=== PATIENT | female | born 1960 | race Caucasian/White ===

== ENCOUNTER → 2017-07-12 | Outpatient (CLI) | payer BC ==
[~2017-07-12] MED LIST: CPR500 PO; LRT5 PO; PARO1TAB27 PO
--- NOTE | 2017-07-12 14:45 | MAMMOGRAPHY REPORT ---
BILATERAL DIGITAL SCREENING MAMMOGRAM TOMOSYNTHESIS WITH CAD: 07/12/2017 CLINICAL HISTORY: Routine screening. Patient has no complaints. TECHNIQUE: Breast tomosynthesis in addition to standard 2D mammography was performed. Current study was also evaluated with a Computer Aided Detection (CAD) system. COMPARISON: Comparison is made to exams dated: 07/08/2016 mammogram, 06/27/2015 mammogram, 06/25/2014 mammogram, 06/21/2013 mammogram, 06/20/2012 mammogram, and 06/17/2011 mammogram - [facility]. BREAST COMPOSITION: There are scattered areas of fibroglandular density in both breasts. FINDINGS: The parenchymal pattern is similar to prior exams. No suspicious mass, architectural distor tion or cluster of microcalcifications is seen. IMPRESSION: ACR BI-RADS CATEGORY 1: NEGATIVE There is no mammographic evidence of malignancy. A 1 year screening mammogram is recommended. The pa tient will receive written notification of the results. Approximately 10% of breast cancers are not detected with mammography. A negative mammographic report should not delay biopsy if a clinically suggestive mass is present. Marimar Plunkett M.D. ay/:07/12/2017 08:18:14 Pneumatic Tester: Moe Sherman, M, [facility] letter sent: Normal 1/2 BI-RADS Code: ACR BI-RADS Category 1: Negative
== END | disposition home or self-care (01) ==
LOC: C.MAMM 07:44
PROVIDERS: ATTEND Family Medicine
DX: Z12.31 Encounter for screening mammogram for malignant neoplasm of breast (principal)

== ENCOUNTER 2018-03-25 04:59 | Inpatient (IN) | payer BC ==
[2018-02-02 15:56] VITALS: BMI 31.0
[2018-02-16 10:45] VITALS: BMI 31.0
--- NOTE | 2018-03-24 08:28 | HISTORY & PHYSICAL EXAMINATION ---
DATE OF ADMISSION: 03/25/2018 CHIEF COMPLAINT: Primary osteoarthritis of the left hip. HISTORY OF PRESENT ILLNESS: Zenaida is a pleasant 57-year-old female who has been dealing with a several-year history of increasing left hip pain. X-rays and clinical examination have been diagnostic for primary osteoarthritis of the left hip. After failing conservative treatment, she elected to proceed with an anterior left total hip arthroplasty. PAST MEDICAL HISTORY: Significant for depression. PAST SURGICAL HISTORY: Significant for stress incontinence about 7 years ago and tonsillectomy. ALLERGIES: None. MEDICATIONS: Include Effexor, Wellbutrin, Adderall, meloxicam, tramadol and Flonase. SOCIAL HISTORY: Significant for thyroid cancer. SOCIAL HISTORY: The patient is . She has 4-5 drinks of alcohol per week. She is a former tobacco user. She is very active during the summer time. She works as a teacher. REVIEW OF SYSTEMS: She complains of left hip pain. All other pertinent review of systems are negative. PHYSICAL EXAMINATION: GENERAL: She is awake, alert and orient x3. She is in no apparent distress. She is very pleasant. HEENT: Pupils are equal, round, reactive to light. Extraocular motion intact. Oral mucosa is pink and moist. HEART: Regular rate per radial pulse. LUNGS: Clarissa symmetrically bilaterally with no audible breath sounds. ABDOMEN: Soft, nontender, nondistended. MUSCULOSKELETAL: On physical examination of the left hip, her leg lengths are equal. She ambulates independently. She does have pain with forced internal and external rotation of her hip. She has no pain over the greater trochanteric bursa. She has decreased range of motion of her hip compared to right. She is neurovascularly intact. IMAGING DATA: X-rays of the left hip do show advanced osteoarthritis with joint space narrowing, osteophyte formation and [id number] articulation. IMPRESSION: Primary osteoarthritis of the left hip. PLAN: Will proceed with a left anterior total hip arthroplasty. Postoperatively, she will be started on aspirin for DVT prophylaxis and kept overnight for postoperative medical management. We planned to discharge her to home with [facility].
[~2018-03-25] VITALS: Ht 167.6 cm; Wt 89.0 kg
[2018-03-25] VITALS (9 sets, daily range): BP systolic 91–124; BP diastolic 59–82; PULSE 60–78; TEMP 36.4–37.1; O2SAT 95–100; Ht 167.6 cm; Wt 89.0 kg
[~2018-03-25 04:59] MED LIST changes: +AMPH10TA2 PO; +BUPRTAB PO; -CPR500 PO; +EFF75 PO; +ESTVR2 VAGRING; +FLUT0.15 NAE; +LACTATED RINGER'S 1000ML 1,000 ML IV SCH; -LRT5 PO; +MELO-83 PO; -PARO1TAB27 PO; +TRAM-10 PO; +VENL150C56 PO
[2018-03-25] MEDS ORDERED: BIOT7500 PO (05:32)
[2018-03-25] MEDS ORDERED: LACTATED RINGER'S 1000ML 500 ML IV SCH (06:00)
[2018-03-25] MEDS ORDERED: ACETAMINOPHEN 500 MG TAB PO SCH (06:00)
[2018-03-25] MEDS ORDERED: GABAPENTIN 600 MG PO SCH (06:00)
[2018-03-25] MEDS ORDERED: CEFAZOLIN 2000MG IV PUSH 15 ML IV SCH (06:00)
[2018-03-25] MEDS ORDERED: LACTATED RINGER'S 1000ML 1,000 ML IV SCH (06:00)
[2018-03-25] MEDS ORDERED: FAMOTIDINE 20 MG TAB PO SCH (06:00)
[2018-03-25] MEDS ORDERED: ROPIVACAINE 5MG/ML 30 ML 150 MG, BUPIVACAINE 0.5% MPF INJ 30 ML, EpINEphrine HCL INJ 0.... INFIL SCH ×8 (06:00)
[2018-03-25] MEDS: TRANEXAMIC ACID INJ 1,000 MG x 2 Bags IV SCH ×2 (06:30)
--- NOTE | 2018-03-25 06:31 | History & Physical Bridge Note ---
H&P Re-Evaluation Bridge Note: I have examined the patient, reviewed the History & Physical and in the interval since the performance of the History & Physical I have noted the following changes of clinical significance: No changes noted
[2018-03-25] MEDS ORDERED: MIDAZOLAM HCL 1 MG/ML 2ML VIAL ONE (06:40)
[2018-03-25] MEDS ORDERED: FENTANYL CITRATE INJ 50 MCG/1 ML 2 ML VIAL ONE (06:40)
[2018-03-25] MEDS ORDERED: ATROPINE SULFATE 0.1 MG/ML 5ML SYR IV PRN (07:15)
[2018-03-25] MEDS ORDERED: ONDANSETRON INJ 2 MG/ML 2 ML VIAL IV PRN ×2 (07:15→08:45)
[2018-03-25] MEDS ORDERED: FENTANYL CITRATE INJ 50 MCG/1 ML 2 ML VIAL IV PRN (07:15)
[2018-03-25] MEDS ORDERED: EpHEDrine SULFATE INJ 50 MG/ML AMP IV PRN (07:15)
[2018-03-25] MEDS ORDERED: BACITRACIN 50000 UNIT VIAL IR ONE (07:43)
--- NOTE | 2018-03-25 08:35 | [facility] Post Operative Brief Note ---
Immediate Operative Summary Operative Date Mar 25, 2018. Pre-Operative Diagnosis Primary Osteoarthritis, Left Hip Post-Operative Diagnosis Primary Osteoarthritis, Left Hip Procedure(s) Performed Left Anterior Total Hip Arthroplasty Surgeon Dr. Darius Lorenzo Burling And Joining Supervisor Surgeon(s) Dionisio Mcduffie PA-C Estimated Blood Loss 150ML Findings Consistent with Post-Op Diagnosis Specimens Permanent Solution: A.) Left Femoral Head Anesthesia Type Spinal MAC
--- NOTE | 2018-03-25 08:41 | Discharge Instructions ---
Discharge Instructions Date of Service Mar 25, 2018. Admission Reason for Admission: Osteoarthritis Left Hip Discharge Discharge Diagnosis / Problem: Left Total Hip Discharge Goals Goal(s): Decrease discomfort, Improve function Activity Recommendations Activity Limitations: as noted below . Instructions / Follow-Up Instructions / Follow-Up Activity and Therapy Recommendations: * If you are using [facility] then Physical Therapy will be provided until they feel you are ready to start Outpatient Physical Therapy. If you are not using a Home Health agency then Outpatient Physical Therapy should start about 3-5 days from your day of surgery. Therapy will last about 3-6 weeks * You were shown a series of exercises in the hospital. Do these exercises three times each day including the exercises you were shown in physical therapy. * Get up and walk several times each day.~ For the first four weeks, try not to stand or walk for more than one hour at a time. If you do stand or walk for more than one hour, you will not hurt anything, but your leg will likely swell.~ ~ * As you feel comfortable, you may change from the walker or crutches to a cane and~then to independent walking. Medications: * Narcotic You will likely be sent home from the hospital with a prescription for the narcotic pain medication that worked best throughout your stay. * Aspirin Most patients will be required to take Aspirin 325mg twice a day for 6 weeks after surgery. This is obtained [id number] and a prescription is not necessary. * Other medications may be prescribed for specific circumstances. If you have any questions, please call the office at . * Resume previous home medications unless otherwise instructed TEDs/Elastic Stockings: The white elastic stockings help limit swelling and prevent blood clots from forming in your legs. The more you wear them, the more they work. Wear them for six weeks. Dressing Care: You will likely have a purple VAC dressing after surgery. This dressing will keep the incision dry and promote early healing. After about 8 days the batteries will wear out and the VAC will lose suction. Simply remove the dressing at that time and throw everything away, including the small suction machine. Then, you may leave the pearl open to air or cover them with a dry dressing so they do not rub on your pants. The pearl will be removed at your 2 week follow-up appointment. Showering: You may shower immediately with the purple VAC dressing. Let the shower spray hit your opposite side and slowly pat the plastic dry. Do not soak the dressing. After the dressing is removed you may shower normally with the pearl exposed. Let soapy water run over the pearl and pat them dry. Things To Watch For: * Drainage from the incision site that occurs more than one week after your surgery. * Increased redness at the incision site. * Fever above 102 degrees Fahrenheit. * Unusual chest pain or shortness of breath. * [facility] at with any of the above problems Follow-Up Visit: Follow-up with Dr. Lorenzo 2 weeks after your day of surgery. An appointment was probably scheduled when you signed-up for surgery in the office. If you have any questions call Office Instructions: More detailed instructions as well as Frequently Asked Questions were provided in a folder by our office when you signed-up for surgery. Please review these instructions when you get home. If you have any further questions or concerns, please feel free to call the office at [phone] Current Hospital Diet Patient's current hospital diet: Regular Diet Discharge Diet Recommended Diet: Regular Diet Procedures Procedures Performed: Left Anterior Total Hip Arthroplasty Pending Studies Studies pending at discharge: no Medical Emergencies . Who to Call and When: Medical Emergencies: If at any time you feel your situation is an emergency, please call [phone] immediately. . Non-Emergent Contact Non-Emergency issues call your: Surgeon Call Non-Emergent contact if: wound has increased drainage, wound has increased redness . "Provider Documentation" section prepared by Darius Lorenzo. .
[2018-03-25] MEDS ORDERED: MoRPHine SULFATE 2 MG/ML CARP IV PRN (08:45)
[2018-03-25] MEDS ORDERED: MAGNESIUM HYDROXIDE SUSP 30 ML UDC PO PRN (08:45)
[2018-03-25] MEDS ORDERED: FLUTICASONE PROPIONATE NA SPR 16 GM BTL NAE PRN (08:45)
[2018-03-25] MEDS ORDERED: BISACODYL 10 MG SUPP PR PRN (08:45)
[2018-03-25] MEDS ORDERED: METOCLOPRAMIDE HCL INJ 5 MG/ML 2 ML VIAL IV PRN (08:45)
[2018-03-25] MEDS ORDERED: SOD PHOSPHATE/SOD BIPHOSPHATE ENEMA 132 ML BTL PR PRN (08:45)
[2018-03-25] MEDS ORDERED: TRAMADOL HCL 50 MG TAB PO PRN (08:45)
[2018-03-25] MEDS: MULTIVITAMIN TAB PO SCH (09:00)
--- NOTE | 2018-03-25 09:20 | DIAGNOSTIC IMAGING REPORT ---
AP PELVIS, CROSSTABLE LATERAL LEFT HIP History: Left total hip arthroplasty. Degenerative arthritis. Postop. FINDINGS: The patient is status post a left total hip arthroplasty. The hardware is intact. No fracture or dislocation. Skin pearl are in place. IMPRESSION: Left total hip arthroplasty. No evidence for hardware complication. Electronically signed by: Gerson Barber M.D. 03/25/2018 9:18 AM Dictated Date/Time: 03/25/2018 9:17 AM
--- NOTE | 2018-03-25 09:41 | Anesthesiology Progress Note ---
Anesthesia Post Op Note Date & Time Mar 25, 2018 at 09:41 Vital Signs Pain Intensity: 0 Vital Signs Past 12 Hours Date Time Temp Pulse Resp B/P (MAP) Pulse Ox O2 Delivery O2 Flow Rate FiO2 03/25/18 09:30 62 16 105/65 100 Nasal Cannula 4 03/25/18 09:20 61 16 104/72 100 Nasal Cannula 4 03/25/18 09:10 58 16 104/66 100 Nasal Cannula 4 03/25/18 09:00 58 16 101/59 100 Nasal Cannula 4 03/25/18 08:52 36.6 76 16 108/65 98 Nasal Cannula 4 03/25/18 05:42 36.9 73 18 117/74 100 Room Air Notes Mental Status: alert / awake / arousable, participated in evaluation Pt Amnestic to Procedure: Yes Nausea / Vomiting: adequately controlled Pain: adequately controlled Airway Patency, RR, SpO2: stable & adequate BP & HR: stable & adequate Hydration State: stable & adequate Neuraxial Anesthesia: was administered, sensory block is resolving Anesthetic Complications: no major complications apparent
--- NOTE | 2018-03-25 10:17 | OPERATIVE REPORT ---
DATE OF OPERATION: 03/25/2018 PREOPERATIVE DIAGNOSIS: Primary osteoarthritis of the left hip. POSTOPERATIVE DIAGNOSIS: Primary osteoarthritis of the left hip. PROCEDURE: Left anterior total hip arthroplasty. SURGEON: Dr. Darius Lorenzo. TRANSMISSION INSPECTOR: Bertrand Mcduffie PA-C, whose assistance was necessary for retraction and closure. ANESTHESIA: Spinal. COMPLICATIONS: None. CONDITION: Stable to PACU. IMPLANTS USED: I used a [employer] Taperloc left total hip arthroplasty system with a size 50 G7 cup, a single 30 mm screw, neutral E-poly liner, a size 10 standard offset pressfit Taperloc stem, and a 32 mm ceramic head with a 0 neck. INDICATIONS: Zenaida is a pleasant 57-year-old female who presented to my office with chronic increasing left hip pain. X-rays and clinical examination were diagnostic for primary osteoarthritis of the left hip. After failing conservative treatment, she elected to undergo a left total hip arthroplasty. OPERATION AND FINDINGS: On 03/25/2018, she arrived at [facility] for the above procedure. She was seen in the preoperative holding area and the operative extremity was identified and signed. She was given a preoperative antibiotic and a spinal anesthetic. She was taken back to the operating room, laid on the table in supine position and put under basic sedation. The left leg was brought out to a purist leg positioner. Left hip was then prepped and draped in sterile fashion. Time-out was done and the patient's operative extremity was properly identified. An anterior approach was used. Dissection was taken down through the fascia and the tensor muscle belly was retracted laterally and the rectus was retracted medially. The circumflex vessels were ligated. The capsule was incised and tagged for later repair. The femoral neck was then resected along the intertrochanteric line and the femoral head was removed. The acetabulum was then exposed. Time was spent doing a complete circumferential labral release. Sequential reaming of the acetabulum up to a size 49 reamer was done. Final reamings were done under fluoroscopy to ensure appropriate version. A 50 mm G7 cup was then impacted into place. A single 30 mm screw was placed followed by the E-poly neutral liner. Surrounding soft tissues were injected with 100 mL of an orthopedic pain control cocktail. The proximal femur was then exposed. Sequential broaching up to a size 10 broach was done. A standard head and neck assembly was applied and the hip was reduced. Fluoroscopic images showed anatomic sizing of the components and good alignment of the hip. The hip was then dislocated. The broach was removed. The final size 10 standard offset Taperloc stem was then impacted into place. A 36 mm ceramic head with a 0 neck was then impacted into place. The hip was then reduced. Final fluoroscopic images showed anatomic alignment. The wound was then irrigated with 3 liters normal saline solution bacitracin. The capsule was then closed with #1 Vicryl suture. Fascia was closed with #1 PDS. Skin was closed with 2-0 Vicryl and pearl and a Prevena VAC dressing. She was then transferred to a hospital bed and taken to the postanesthesia care unit in stable condition. She tolerated the procedure well. I attest to the content of the Intraoperative Record and any orders documented therein. Any exception s are noted below.
[2018-03-25] MEDS: BuPROPion XL 150 MG TABCR PO SCH ×2 (11:00→21:07)
--- NOTE | 2018-03-25 11:29 | DIAGNOSTIC IMAGING REPORT ---
LEFT HIP UNILATERAL 1 VIEW CLINICAL HISTORY: Left ANTERIOR TOTAL. Intraoperative study. Fluoroscopy time: 35 seconds. FINDINGS: A single fluoroscopic spot image of the left hip was submitted. There is a left total arthroplasty. The femoral prosthesis tip is not entirely excluded on this study. The visualized hardware appears intact. No fracture or dislocation. IMPRESSION: Intraoperative study provided for a left total arthroplasty. The hardware appears intact. Electronically signed by: Gerson Barber M.D. 03/25/2018 11:28 AM Dictated Date/Time: 03/25/2018 11:28 AM
[2018-03-25] MEDS: KETOROLAC TROMETHAMINE 30 MG/ML VIAL IV. SCH ×2 (11:37→16:59)
[2018-03-25] MEDS: OXYCODONE HCL IR 5 MG TAB (IMMEDIATE RELEASE) PO PRN ×3 (11:43→19:20)
[2018-03-25] MEDS: SODIUM CHLORIDE 0.9% 1000ML 1,000 ML IV SCH ×2 (12:36→21:06)
[2018-03-25] MEDS: ACETAMINOPHEN IV 1,000 MG in EMPTY BAG 0 ML IV SCH ×2 (13:53→21:06)
[2018-03-25] MEDS: CEFAZOLIN IV 2,000 MG in SYRINGE 0 ML IV SCH ×2 (13:54→21:06)
[2018-03-25] MEDS ORDERED: SENNA 8.6 MG TAB PO SCH (21:00)
[2018-03-25] MEDS: DOCUSATE SODIUM 100 MG CAP PO SCH (21:06)
[2018-03-25] MEDS: ASPIRIN 325 MG ECTAB PO SCH (21:07)
[2018-03-26] MEDS: KETOROLAC TROMETHAMINE 30 MG/ML VIAL IV. SCH ×3 (00:05→12:00)
[2018-03-26 02:59] VITALS: BP 109/68; PULSE 78; TEMP 37.1; O2SAT 96
[2018-03-26] MEDS: SODIUM CHLORIDE 0.9% 1000ML 1,000 ML IV SCH (06:07)
[2018-03-26] MEDS: ACETAMINOPHEN IV 1,000 MG in EMPTY BAG 0 ML IV SCH (06:08)
[2018-03-26 06:34] LABS: BASO % 0.1 %; BASO ABS # 0.01 K/uL (0-0.2); EOS % 0.5 %; EOS ABS # 0.05 K/uL (0-0.5); HEMATOCRIT 34.3 % (37-47); HEMOGLOBIN 11.3 g/dL (12.0-16.0); IG# 0.02 K/uL (0.00-0.02); LYMPH % 14.8 %; LYMPH ABS # 1.47 K/uL (1.2-3.4); MEAN CELL VOLUME 96.1 fL (80-100); MEAN CORPUSCULAR HEMOGLOBIN 31.7 pg (25-34); MEAN CORPUSCULAR HGB CONC 32.9 g/dl (32-36); MEAN PLATELET VOLUME 10.8 fL (7.4-10.4); MONO % 10.5 %; MONO ABS # 1.04 K/uL (0.11-0.59); NEUT % 73.9 %; NEUT ABS # 7.32 K/uL (1.4-6.5); PLATELET COUNT 168 K/uL (130-400); RED CELL DISTRIBUTION WIDTH CV 12.4 % (11.5-14.5); RED CELL DISTRIBUTION WIDTH SD 43.3 fL (36.4-46.3); WHITE BLOOD COUNT 9.91 K/uL (4.8-10.8)
[2018-03-26 07:08] LABS: CALCIUM 8.1 mg/dl (8.5-10.1); CREATININE 0.68 mg/dl (0.60-1.20); POTASSIUM 4.1 mmol/L (3.5-5.1)
[2018-03-26 07:28] VITALS: BP 100/64; PULSE 86; TEMP 36.8; O2SAT 98
[2018-03-26] MEDS ORDERED: RXC5 PO (08:13)
[2018-03-26] MEDS ORDERED: ASPEC325 PO (08:13)
[2018-03-26] MEDS ORDERED: VENLAFAXINE HCL XR 150 MG CAPXR PO SCH (09:00)
[2018-03-26] MEDS ORDERED: AMPHETAMINE ASP/SULF/DEXTRAMPH 5 MG TAB PO SCH (09:00)
[2018-03-26] MEDS ORDERED: VENLAFAXINE HCL 37.5 MG TAB PO SCH (09:00)
[2018-03-26] MEDS: DOCUSATE SODIUM 100 MG CAP PO SCH (09:06)
[2018-03-26] MEDS: MULTIVITAMIN TAB PO SCH (09:06)
[2018-03-26] MEDS: ASPIRIN 325 MG ECTAB PO SCH (09:07)
[2018-03-26] MEDS: BuPROPion XL 150 MG TABCR PO SCH (09:07)
[2018-03-26] MEDS: OXYCODONE HCL IR 5 MG TAB (IMMEDIATE RELEASE) PO PRN ×2 (09:11→13:10)
--- NOTE | 2018-03-26 09:22 | PROGRESS NOTE ---
DATE: 03/26/2018 CHIEF COMPLAINT: Status post left total hip arthroplasty postop day #1. SUBJECTIVE: Zenaida was seen and examined at bedside today. Overall, she is doing fairly well. She said she has not had much sleep in the last 3 nights. She says she is very tired, and she has some soreness in the hip, but the pain is not too bad. She has already been up and ambulating some with the hip. She has no complaints. OBJECTIVE: She is lying on her side when I came into the room. She was trying to get some sleep. The Prevena VAC is to suction. Her leg lengths are equal. She has active dorsiflexion and plantarflexion of her left ankle, and sensation is intact throughout. Her vital signs are all stable on room air, and she is voiding on her own. LABORATORY DATA: She has an H&H today of 11.3 and 34.3. Her glucose is 102. IMAGING: X-rays postoperatively of the left hip showed the prosthesis to be in anatomic alignment without any evidence of fracture, dislocation, or loosening. IMPRESSION: Status post left total hip arthroplasty, postop day #1. PLAN: At this point, she is doing fairly well and is happy with her progress. She is able to get up and ambulate some with her hip. She is just very tired. We will continue the oxycodone for pain control and aspirin for DVT prophylaxis. I told her that if she wanted to go home later this afternoon, she could go home if she felt she could better sleep at home. If she feels she can get a little bit more rest with 1 more night stay in the hospital, then I would be happy to send her home tomorrow. She is planned to be discharged to home with [facility].
[2018-03-26 10:47] VITALS: BP 100/64; PULSE 86; TEMP 36.8; O2SAT 98
[2018-03-26 11:28] VITALS: BP 97/55; PULSE 84; TEMP 37.1; O2SAT 98
[2018-03-26] MEDS ORDERED: ACETAMINOPHEN 500 MG TAB PO SCH (14:00)
--- NOTE | 2018-04-04 11:08 | DISCHARGE SUMMARY ---
DISCHARGE DIAGNOSIS: Primary osteoarthritis of the left hip. PROCEDURE: Left total hip arthroplasty on 03/25/[address] Darius Lorenzo. DISCHARGE INSTRUCTIONS: 1. Aspirin 325 mg twice a day for six weeks. 2. Oxycodone 5/10 mg every four hours as needed for pain. 3. Adderall 15 mg daily. 4. Wellbutrin 150 mg twice a day. 5. Estradiol 2 mg every three months. 6. Flonase two sprays daily as needed. 7. Meloxicam 15 mg in the morning. 8. Ultram 50 mg every eight hours as needed for pain. 9. Effexor 75 mg in the morning. 10. Effexor extended release 150 mg in the morning. 11. Follow up with Dr. Lorenzo in two weeks. 12. Call the office of Dr. Lorenzo with any questions or concerns. HOSPITAL COURSE: Zenaida is a pleasant 57-year-old female who presented to my office with chronic increasing left hip and groin pain. X-rays and clinical examination were diagnostic for primary osteoarthritis of the left hip. After failing conservative treatment, she elected to undergo a left anterior total hip arthroplasty. On 03/25/2018, she arrived at [facility] and underwent a left anterior total hip arthroplasty without complication. She had spinal anesthetic. Postoperatively, she was discharged to general orthopedic floor. She was started on aspirin for DVT prophylaxis. Her hospital course was uneventful. On postop day #1, her H and H was stable at 11.3 and 34.4. She was able to get up and ambulate well with physical therapy. She was a little bit tired. After lunch, she was feeling a little bit better. She felt that she would get better sleep at home. She was subsequently discharged to home on postop day #1 with [facility] and the above instructions.
== END 2018-03-26 13:17 | disposition home health service (06) | DRG 470 ==
LOC: C.ACU 04:59 → C.3E 08:39 → ENRESERV 09:31
PROVIDERS: ADMIT Orthopaedic Surgery; ATTEND Orthopaedic Surgery
PROC: 0SRB04Z Replacement of Left Hip Joint with Ceramic on Polyethylene Synthetic Substitute, Open Approach (ICD-10-PCS; principal; 2018-03-25 07:00)
DX: M16.12 Unilateral primary osteoarthritis, left hip (principal); F32.9 Major depressive disorder, single episode, unspecified; Z85.850 Personal history of malignant neoplasm of thyroid

== ENCOUNTER 2020-02-07 07:45 | Observation (INO) ==
--- NOTE | 2020-01-18 14:39 | PAT Medication Instructions ---
Medication Instructions Date of Service January 18, 2020 Home Medications atomoxetine [Strattera] 60 mg PO QAM biotin 10,000 mcg PO QAM bupropion HCl [Wellbutrin SR] 150 mg PO BID cetirizine [Zyrtec] 10 mg PO QAM estradiol [Estring] See Rx Instructions .ROUTE .COMPLEX lisinopril-hydrochlorothiazide 1 tab PO QAM venlafaxine [Effexor XR] 225 mg PO QAM Continue as directed estradiol [Estring] See Rx Instructions .ROUTE .COMPLEX DO NOT take the morning of surgery biotin 10,000 mcg PO QAM cetirizine [Zyrtec] 10 mg PO QAM lisinopril-hydrochlorothiazide 1 tab PO QAM Take morning of surgery With a small sip of water, OTHERWISE NOTHING TO EAT OR DRINK AFTER MIDNIGHT: atomoxetine [Strattera] 60 mg PO QAM bupropion HCl [Wellbutrin SR] 150 mg PO BID venlafaxine [Effexor XR] 225 mg PO QAM Take evening before surgery bupropion HCl [Wellbutrin SR] 150 mg PO BID Other Notes If you have any questions please call us at [phone] or [phone] or [phone] or [phone]
--- NOTE | 2020-01-23 12:56 | Anesthesiology Consultation ---
Date of Service January 23, 2020 Assessment & Plan (1) Encounter for pre-operative examination: Per PAT assessment on 01/21: Travel screen- Lives in [facility]. No known COVID-19 positive contacts. No history of COVID-19 testing. No current COVID-19 related symptoms. Chart Review Chart Review: Acceptable Risk for Surgery and Patient seen in Pre Admission Testing Teaching & Discussion Pre-Anesthesia Teaching/Discussion Notes: Instructed NPO after midnight before surgery,except medications with 15 cc of water. Medication instructions provided according to the PAT guidelines. History Surgery Operation Date: 12/04/19 09:05 Proposed Procedures p L4-S1 Decompression and Fusion, Spinal Cord Monitoring - Serjio Yang DO Operation Date: 02/07/20 09:35 Proposed Procedures p L4-S1 Decompression Fusion, Spinal Cord Monitoring - Serjio Yang DO Height/Weight Height: 5 ft 6 in Weight: 94.1 kg Allergies Allergy/AdvReac Type Severity Reaction Status Date / Time adhesive Allergy Unknown RASH Verified 01/12/20 11:02 naproxen AdvReac Unknown GI UPSET Verified 01/12/20 11:02 Medications Home Medications Medication Instructions Recorded Confirmed Last Taken atomoxetine [Strattera] 60 mg PO QAM 01/12/20 01/12/20 Unknown biotin 10,000 mcg PO QAM 01/12/20 01/12/20 Unknown bupropion HCl [Wellbutrin SR] 150 mg PO BID 01/12/20 01/12/20 Unknown cetirizine [Zyrtec] 10 mg PO QAM 01/12/20 01/12/20 Unknown estradiol [Estring] See Rx Instructions .ROUTE .COMPLEX 01/12/20 01/12/20 Unknown lisinopril-hydrochlorothiazide 1 tab PO QAM 01/12/20 01/12/20 Unknown venlafaxine [Effexor XR] 225 mg PO QAM 01/12/20 01/12/20 Unknown Past Medical History Medical History ADD (attention deficit disorder) Strattera to be discontinued in near future per patient Anxiety and depression Depression High blood pressure Spinal stenosis Exercise / Class Metabolic Activity II 4-5 Yardwork/Stairs/Walk up hill Past Surgical History Surgical History History of colonoscopy History of eyelid surgery AND BROW LIFT - BILAT History of gynecologic surgery "TVT" History of tonsillectomy History of total left hip arthroplasty Anterior Left LAURE: SAB x2 at L3[facility]L4 at [facility] Past Anesthesia History No Hx of Anesthesia Complications and No Family Hx of Anesthesia Complications History of PONV No Hx of PONV and No Hx of Motion Sickness Social History Smoking Status: Former smoker Do You Dip or Chew Tobacco: No Smoking End Date: Quit JANUARY 1989 Alcohol type: beer, wine and hard liquor Alcohol Intake Frequency Comment: 2 DRINKS A WEEK Hx Substance Use: No substance use type: does not use Review of Systems Patient denies chest pain, shortness of breath, dyspnea on exertion, fever, chills, cough, wheezing, palpitations. Physical Exam Vital Signs VITALS BP 110/77 P 87 TEMP 98.5 SP02 95%RA RESP 16 PHYSICAL Full neck and c-spine range of motion. Full TMJ range of motion. TMD 3.5 finger breaths Mallampati Score 1 Dentition: lower right molar bridge, several crowns Lungs: clear throughout to auscultation Cardiac: regular rate and rhythm, no murmurs noted Spine: normal Carotid arteries: negative bruit Extremities: no edema Testing Laboratory Results 01/23/20 13:27 01/23/20 13:27 PT 10.6 Seconds (9.0-12.0) 01/23/20 13:27 INR 1.0 (0.9-1.1) 01/23/20 13:27 APTT 25.9 Seconds (21.0-31.0) 01/23/20 13:27 Urine Color Yellow 01/23/20 13:27 Urine Appearance Clear (Clear) 01/23/20 13:27 Urine pH 6.5 (4.5-7.5) 01/23/20 13:27 Ur Specific [place] 1.019 (1.000-1.030) 01/23/20 13:27 Urine Protein Negative (Negative) 01/23/20 13:27 Urine Glucose (UA) Negative (Negative) 01/23/20 13:27 Urine Ketones Negative (Negative) 01/23/20 13:27 Urine Nitrite Negative (Negative) 01/23/20 13:27 Ur Leukocyte Esterase Negative (Negative) 01/23/20 13:27 Blood Type AB Positive 01/23/20 13:27 Antibody Screen NEGATIVE 01/23/20 13:27 Electrocardiogram Date: 01/23/20 Findings: + NSR @ (82) Chest X-Ray Date: 01/23/20 Findings: + NAD
--- NOTE | 2020-01-23 13:54 | XRay Report ---
XR chest Pre-admission PA/Lat CLINICAL HISTORY: Preoperative chest COMPARISON STUDY: 02/16/2018 FINDINGS: The cardiac and mediastinal contours are normal. There is no evidence of focal pulmonary co nsolidation. There is no evidence of failure. No pleural effusions are visualized.[ IMPRESSION: No active disease in the chest. ACT 112: Negative or not required by law. Electronically signed by: Melquiades Mendez M.D. 01/23/2020 1:53 PM
[2020-01-23 14:35] LABS: Basophils # (auto) 0.03 K/uL (0-0.2); Basophils % (auto) 0.5 %; Eosinophils # (auto) 0.21 K/uL (0-0.5); Eosinophils % (auto) 3.3 %; Hematocrit (blood only) 41.1 % (37-47); Hemoglobin 13.6 g/dL (12.0-16.0); Immature Granulocytes # (auto) 0.01 K/uL (0.00-0.02); Immature Granulocytes % (auto) 0.2 %; Lymphocytes # (auto) 2.27 K/uL (1.2-3.4); Lymphocytes % (auto) 36.1 %; Mean Corpuscular Hgb Conc 33.1 g/dL (32-36); Mean Corpuscular Volume 96.7 fL (80-100); Mean Platelet Volume 10.1 fL (7.4-10.4); Monocytes # (auto) 0.63 K/uL (0.11-0.59); Neutrophils # (auto) 3.13 K/uL (1.4-6.5); Neutrophils % (auto) 49.9 %; Platelet Count 323 K/uL (130-400); RDW Coefficient of Variation 12.4 % (11.5-14.5); RDW Standard Deviation 43.8 fL (36.4-46.3); Red Blood Count 4.25 M/uL (4.2-5.4); White Blood Count 6.28 K/uL (4.8-10.8)
[2020-01-23 14:54] LABS: Appearance Urine Clear (Clear); Bilirubin Urine Negative (Negative); Blood Urine Negative (Negative); Color Urine Yellow; Glucose Urine UA Negative (Negative); Ketones Urine Negative (Negative); Leukocyte Esterase Urine Negative (Negative); Nitrite Urine Negative (Negative); Protein Urine Negative (Negative); Specific Gravity Urine 1.019 (1.000-1.030); Urobilinogen Urine Negative (Negative); pH Urine 6.5 (4.5-7.5)
[2020-01-23 15:00] LABS: Partial Thromboplastin Ratio 0.9; Partial Thromboplastin Time 25.9 Seconds (21.0-31.0); Prothrombin Time 10.6 Seconds (9.0-12.0)
--- NOTE | 2020-01-23 15:11 | Electrocardiogram Report ---
Test Reason : Blood Pressure : / mmHG Vent. Rate : 082 BPM Atrial Rate : 082 BPM P-R Int : 134 ms QRS Dur : 090 ms QT Int : 368 ms P-R-T Axes : 070 060 066 degrees QTc Int : 429 ms Normal sinus rhythm Normal ECG When compared with ECG of 16-FEB-2018 12:01, No significant change was found Confirmed by Altaf Schreiber ([id number]) on 01/23/2020 3:10:35 PM Referred By: Serjio Yang Confirmed By:Altaf Schreiber
[2020-01-23 15:14] LABS: BUN Creatinine Ratio 22.2 (10-20); Calcium 9.2 mg/dl (8.5-10.1); Creatinine Clr Calc Pharmacy 71.4 ml/min; Est GFR (African American) 73.2; Est GFR (Non-African American) 63.1; Potassium 3.8 mmol/L (3.5-5.1)
[~2020-02-07 07:45] MED LIST changes: +ACETAMINOPHEN 500 MG TAB PO SCH; -AMPH10TA2 PO; -BUPRTAB PO; +CEFAZOLIN 2000MG 2,000 MG/15 ML SYR IV SCH; +CeleBREX 200 MG CAP PO SCH; -EFF75 PO; -ESTVR2 VAGRING; -FLUT0.15 NAE; +GABAPENTIN 600 MG DOSE PO SCH; -LACTATED RINGER'S 1000ML 1,000 ML IV SCH; +LR 15ML/HR IV SCH; -MELO-83 PO; -TRAM-10 PO; -VENL150C56 PO
[2020-02-07] MEDS ORDERED: ROCURONIUM BROMIDE 10 MG/ML 5 ML VIAL IV ONE ×2 (08:26→11:51)
[2020-02-07] MEDS ORDERED: ONDANSETRON INJ 2 MG/ML 2 ML VIAL ONE (08:26)
[2020-02-07] MEDS ORDERED: DEXAMETHASONE SOD INJ 4 MG/ML VIAL ONE (08:26)
[2020-02-07] MEDS ORDERED: HYDROmorphone INJ 2 MG/ML SYR/VIAL ONE (08:26)
[2020-02-07] MEDS ORDERED: PROPOFOL IV EMULSION 10 MG/ML 20 ML VIAL IV ONE (08:26)
[2020-02-07] MEDS ORDERED: MIDAZOLAM HCL 1 MG/ML 2ML VIAL ONE (08:26)
[2020-02-07] MEDS ORDERED: LIDOCAINE HCL 2% 2 ML VIAL/AMP(20MG/ML) INFIL ONE (08:26)
[2020-02-07] MEDS ORDERED: fentaNYL citrate 100 MCG/2 ML VIAL ONE (08:26)
[2020-02-07] MEDS ORDERED: PHENYLEPHRINE HCL 10 MG/ML VIAL ONE (09:21)
--- NOTE | 2020-02-07 09:40 | History & Physical Bridge Note ---
Date of Service February 07, 2020 History & Physical Bridge Note I have examined the patient, reviewed the History & Physical and in the interval since the performance of the History & Physical I have noted the following changes of clinical significance: no changes noted
--- NOTE | 2020-02-07 09:41 | History & Physical Report ---
Date of Service February 07, 2020 Assessment & Plan (1) Neurogenic claudication due to lumbar spinal stenosis: L4-S1 decompression fusion Present on Admission?: Yes History of Present Illness Chief Complaint: Back and bilateral leg pain Primary Care Provider: Aminata Farnco MD This is a 59-year-old female who presents with chronic persistent back and bilateral leg pain. After failing extensive course of nonoperative care is here for surgical intervention. Allergies Allergy/AdvReac Type Severity Reaction Status Date / Time adhesive Allergy Unknown RASH Verified 02/07/20 08:11 naproxen AdvReac Unknown GI UPSET Verified 02/07/20 08:11 Home Medications Home Medications Medication Instructions Recorded Confirmed Type atomoxetine [Strattera] 60 mg PO QAM 01/12/20 02/07/20 History biotin 10,000 mcg PO QAM 01/12/20 02/07/20 History bupropion HCl [Wellbutrin SR] 150 mg PO BID 01/12/20 02/07/20 History cetirizine [Zyrtec] 10 mg PO QAM 01/12/20 02/07/20 History estradiol [Estring] See Rx Instructions .ROUTE .COMPLEX 01/12/20 02/07/20 History lisinopril-hydrochlorothiazide 1 tab PO QAM 01/12/20 02/07/20 History venlafaxine [Effexor XR] 225 mg PO QAM 01/12/20 02/07/20 History tramadol 50 mg PO Q6H PRN 02/07/20 02/07/20 History Past Med/Surg History Medical History ADD (attention deficit disorder) Strattera to be discontinued in near future per patient Anxiety and depression Depression High blood pressure Spinal stenosis Surgical History History of colonoscopy History of eyelid surgery AND BROW LIFT - BILAT History of gynecologic surgery "TVT" History of tonsillectomy History of total left hip arthroplasty Anterior Left LAURE: SAB x2 at L3-L4 at [facility] Social History (Updated 09/10/19 @ 12:42 by Breana Duran) Preferred Language: Italian Communication Ability: Effective Visual Impairment: No Limitations Hearing Ability: Normal Rod Welder Required: No Beliefs That Will Affect Care: None marital status: Current Living Situation: Spouse and Family Other Information That Helps Us Care for You: No Feels Safe at Home: Yes Smoking Status: Former smoker Do You Dip or Chew Tobacco: No ; Smoking End Date: Quit JANUARY 1989 ; Hx Substance Use: No Physical Exam Physical Exam: Patient alert and oriented neurologically intact Heart is regular rate and rhythm Lungs clear to auscultation Results & Data Vital Signs (Past 12 Hours) Vital Signs Temp Pulse Resp BP Pulse Ox 02/07/20 08:14 37.2 C 82 18 109/71 97
[2020-02-07] MEDS ORDERED: BACITRACIN INJ 50,000 UNIT VIAL ONE (09:50)
[2020-02-07] MEDS ORDERED: BUPIVACAINE/EPINEPHRINE 0.25% 1:200,000 30 ML VIAL ONE (09:51)
[2020-02-07] MEDS ORDERED: PROMETHAZINE HCL 6.25 MG in SODIUM CHLORIDE 0.9% 50 ML IV PRN (10:02)
[2020-02-07] MEDS ORDERED: LABETALOL HCL IV 5 MG/ML 20ML IV PRN (10:02)
[2020-02-07] MEDS ORDERED: ONDANSETRON INJ 2 MG/ML 2 ML VIAL IV PRN ×2 (10:02→13:44)
[2020-02-07] MEDS ORDERED: ATROPINE SULFATE 0.1 MG/ML 10ML SYR IV PRN (10:02)
[2020-02-07] MEDS ORDERED: HYDROmorphone INJ 1 MG/ML SYRINGE IV PRN ×2 (10:02→13:44)
[2020-02-07] MEDS ORDERED: ePHEDrine sulfate 50 MG/ML SYR ONE (10:53)
[2020-02-07] MEDS ORDERED: PHENYLEPHRINE 100MCG/ML 5ML SYR ONE (10:53)
[2020-02-07] MEDS ORDERED: FLOSEAL HEMOSTATIC MATRIX 10ML TOP ONE (11:08)
[2020-02-07] MEDS ORDERED: SUGAMMADEX SODIUM 200 MG/2 ML VIAL IV ONE (11:51)
--- NOTE | 2020-02-07 12:34 | Operative Report ---
Post Operative Report Pre & Post Diagnosis Operation Date: 12/04/19 09:05 <No data on this case meets the specified criteria> Operation Date: 02/07/20 09:35 Pre-Op Diagnosis: Lumbar Spinal Stenosis with neurogenic claudication Spondylolisthesis L5-S1 Post-Op Diagnosis: Lumbar Spinal Stenosis with neurogenic claudication Spondylolisthesis L5-S1 I identified the patient and participated in the time-out.: Yes Procedure Operation Date: 12/04/19 09:05 <No data on this case meets the specified criteria> Operation Date: 02/07/20 09:35 Actual Procedures #1 lumbar decompression with bilateral medial facetectomies and foraminotomies L3-4, L4-5 L5-S1. #2 posterior spinal fusion L4-5 and L5-S1. #3 placement posterior instrumentation L4-5 L5-S1. #4 interbody fusion L4-5 and L5-S1. #5 placed a peek cage 13 x 22 mm at L4-5 and 12 x 22 mm at L5-S1. #6 placement of locally harvested morselized autograft in the posterior lateral gutters. #7 placement infuse collagen sponge, master graft in the posterior lateral gutters and ostial amp interbody spaces. Surgeon Serjio Yang, DO [facility] April P[place] Estimated Blood Loss 200 Findings See Below The patient is 5 foot 6 inches tall weighing over 93 kg with a BMI in excess of 33. Patient's body habitus did add increased technical difficulty requiring her deepest retractors and longest instruments in order to perform her procedure. This added at least 25% increase in operative time. Specimens None Indications This is a 59-year-old female who presents with above-mentioned diagnosis after failing extensive course of nonoperative care is here for surgical invention. Description of Procedure Patient was met with preoperatively case discussed all questions addressed. After informed consent obtained. Patient was taken to the operative suite under went intubation placed in a prone position the Ulises table on top of the Aden frame. All bony prominences well-padded eyes inspected to ensure no external pressure placed upon them. This point the lumbar spine was prepped and draped in the normal sterile fashion. Sharp dissection with the assistance of Bovie cautery was performed down to and exposing the lamina and transverse processes of L for L5 and sacral ala bilaterally. From a caudal cephalad fashion complete laminectomy of L5 L4 partial laminectomy of L3 was performed including bilateral medial facetectomies and foraminotomies addressing severe spinal stenosis. Pedicle screws were then placed in L4-L5 and S1 levels bilaterally with assistance of fluoroscopy and the appropriately sized maria teresa placed. By way of a transforaminal approach on the right complete discectomy of L5-S1 was performed endplates curetted to subcortical bleeding bone and a 12 x 22 mm peek cage filled with osteo-bone graft tapped in position. Then proceeded to L 4- [address] of a transforaminal approach on the right a complete discectomy was performed endplates curetted to subcortical bleeding bone and a 13 x 22 mm peek cage filled with osteo-bone graft tapped in position. Rods were then locked into final position. Transverse processes of L4-L5 and sacral ala burred to subcortical bleeding bone. Infuse collagen sponge master graft local autograft was placed in the posterior gutters. 15 round GIO drain inserted. Incision was then closed with 1 Vicryl in the fascia 2-0 Vicryl subcutaneously and 4 Monocryl for final skin closure. Steri-Strip sterile dressings placed. Patient waken taken PACU stable condition. Please note spinal cord monitoring was utilized that the procedure no changes noted. I attest to the content of the Intraoperative Record and any orders documented therein. Any exceptions are noted below.
--- NOTE | 2020-02-07 13:16 | Fluoroscopy Report ---
INTRAOPERATIVE RADIOGRAPHS CLINICAL HISTORY: L4- S1 spinal fusion. Fluoroscopy time: 21 seconds. FINDINGS: 2 spot fluoroscopic views of the lumbar spine are presented. There is been discectomy at L4 -L5 and L5-S1 with laminectomy and posterior fusion from L4 -S1. Interpedicular screws are present at all levels. Orthopedic hardware appears intact. IMPRESSION: Intraoperative images from L4-S1 spinal fusion as above. Electronically signed by: Rolando Carpio M.D. 02/07/2020 1:15 PM
[2020-02-07] MEDS ORDERED: METOCLOPRAMIDE HCL INJ 5 MG/ML 2 ML VIAL IV PRN (13:44)
[2020-02-07] MEDS ORDERED: NALOXONE HCL 0.4 MG/1 ML VIAL/CARP IV PRN (13:44)
[2020-02-07] MEDS ORDERED: SOD PHOSPHATE/SOD BIPHOSPHATE ENEMA 132 ML BTL PR PRN (13:44)
[2020-02-07] MEDS ORDERED: DO NOT ADMINISTER PNEUMOCOCCAL VACCINE PRN (13:44)
[2020-02-07] MEDS ORDERED: ACETAMINOPHEN 1,000 MG/100 ML VIAL IV PRN (13:44)
[2020-02-07] MEDS ORDERED: LORazepam 0.5 MG/1 ML VIAL IV PRN (13:44)
[2020-02-07] MEDS ORDERED: ALUMINUM/MAGNESIUM SUSP 30 ML UDC PO PRN (13:44)
[2020-02-07] MEDS ORDERED: HYDROmorphone INJ 0.5 MG/0.5 ML SYR IV PRN (13:44)
[2020-02-07] MEDS ORDERED: FAMOTIDINE 20 MG TAB PO PRN (13:44)
[2020-02-07] MEDS ORDERED: MAGNESIUM HYDROXIDE SUSP 30 ML UDC PO PRN (13:44)
[2020-02-07] MEDS ORDERED: ONDANSETRON 4 MG OD TAB PO PRN (13:44)
[2020-02-07] MEDS ORDERED: DO NOT ADMINISTER FLU VACCINE PRN (13:44)
[2020-02-07] MEDS ORDERED: bisacodyL 10 MG SUPP PR PRN (13:44)
[2020-02-07] MEDS ORDERED: ACETAMINOPHEN 500 MG TAB PO PRN (13:44)
[2020-02-07] MEDS ORDERED: PROMETHAZINE HCL 12.5 MG in SODIUM CHLORIDE 0.9% 50 ML IV PRN (13:44)
--- NOTE | 2020-02-07 13:46 | Anesthesiology Progress Note ---
Date of Service February 07, 2020 Anesthesia Post Procedure Vital Signs Vital Signs: Temp Pulse Pulse Resp BP BP Pulse Ox 02/07/20 13:25 37.0 C 89 14 117/75 98 02/07/20 13:15 85 12 115/67 99 02/07/20 13:05 90 16 153/90 H 99 02/07/20 12:55 89 14 155/99 H 99 02/07/20 12:49 36.8 C 89 20 161/98 H 97 02/07/20 08:14 37.2 C 82 18 109/71 97 Pain Intensity Lower Back: Pain Intensity: 3 Transfer of Care Handoff Completed per policy Notes Mental Status: alert / awake / arousable Patient Amnestic to Procedure: Yes Nausea / Vomiting: adequately controlled Pain: adequately controlled Airway Patency, RR, SpO2: stable & adequate BP & HR: stable & adequate Hydration State: stable & adequate Anesthetic Complications: no major complications apparent
[2020-02-07] MEDS: LACTATED RINGER'S 1,000 ML IV SCH ×2 (15:30→20:36)
[2020-02-07] MEDS: KETOROLAC TROMETHAMINE 15 MG/ML VIAL IV SCH ×2 (15:30→20:30)
[2020-02-07] MEDS: CEFAZOLIN 2000MG 2,000 MG/15 ML SYR IV SCH (17:46)
[2020-02-07] MEDS: BuPROPion SR 150 MG TABCR PO SCH (20:29)
[2020-02-07] MEDS: DOCUSATE SODIUM/SENNA 50/8.6MG TAB PO SCH (20:30)
[2020-02-07] MEDS: OXYCODONE HCL IR 5 MG TAB (IMMEDIATE RELEASE) PO PRN (22:36)
[2020-02-08] MEDS: LORazepam 0.5 MG TAB PO PRN (00:08)
[2020-02-08] MEDS: CEFAZOLIN 2000MG 2,000 MG/15 ML SYR IV SCH (03:00)
[2020-02-08] MEDS: KETOROLAC TROMETHAMINE 15 MG/ML VIAL IV SCH ×2 (03:00→08:12)
[2020-02-08] MEDS: POLYETHYLENE (MIRALAX) 17 GM PACK PO SCH ×4 (05:58→23:24)
[2020-02-08 06:15] LABS: Basophils # (auto) 0.01 K/uL (0-0.2); Basophils % (auto) 0.1 %; Eosinophils # (auto) 0.01 K/uL (0-0.5); Eosinophils % (auto) 0.1 %; Hematocrit (blood only) 33.8 % (37-47); Hemoglobin 11.2 g/dL (12.0-16.0); Immature Granulocytes # (auto) 0.02 K/uL (0.00-0.02); Immature Granulocytes % (auto) 0.2 %; Lymphocytes # (auto) 1.39 K/uL (1.2-3.4); Lymphocytes % (auto) 13.4 %; Mean Corpuscular Hemoglobin 32.1 pg (25-34); Mean Corpuscular Hgb Conc 33.1 g/dL (32-36); Mean Corpuscular Volume 96.8 fL (80-100); Mean Platelet Volume 9.8 fL (7.4-10.4); Monocytes # (auto) 0.79 K/uL (0.11-0.59); Monocytes % (auto) 7.6 %; Neutrophils # (auto) 8.17 K/uL (1.4-6.5); Neutrophils % (auto) 78.6 %; Platelet Count 228 K/uL (130-400); RDW Coefficient of Variation 12.2 % (11.5-14.5); RDW Standard Deviation 43.3 fL (36.4-46.3); Red Blood Count 3.49 M/uL (4.2-5.4); White Blood Count 10.39 K/uL (4.8-10.8)
[2020-02-08 06:50] LABS: BUN Creatinine Ratio 24.4 (10-20); Calcium 8.4 mg/dl (8.5-10.1); Creatinine Clr Calc Pharmacy 81.2 ml/min; Est GFR (African American) 85.7; Est GFR (Non-African American) 73.9; Potassium 4.4 mmol/L (3.5-5.1)
[2020-02-08] MEDS: VENLAFAXINE HCL XR 75 MG CAPXR PO SCH (08:13)
[2020-02-08] MEDS: BuPROPion SR 150 MG TABCR PO SCH ×2 (08:13→20:24)
[2020-02-08] MEDS: CETIRIZINE HCL 10 MG TABLET PO SCH (08:13)
[2020-02-08] MEDS: ATOMOXETINE HCL 60 MG CAPSULE PO SCH (08:14)
--- NOTE | 2020-02-08 08:17 | Orthopedic Progress Note ---
Date of Service February 08, 2020 Assessment & Plan (1) Neurogenic claudication due to lumbar spinal stenosis: At this time initiate physical therapy monitor her GIO output anticipate discharge home in the next few days. Admission and Anticipated Discharge Date Admission Date: February 07, 2020 Subjective Back pain controlled leg pain markedly improved. Physical Exam Physical Exam: Patient has good strength testing appears comfortable. Results & Data ([facility]) Vital Signs (Past 12 Hours) Vital Signs Temp Pulse Resp BP Pulse Ox 02/08/20 08:13 36.7 C 78 16 101/64 99 02/08/20 02:41 36.5 C 77 16 96/63 L 94 02/07/20 23:07 36.8 C 82 16 108/68 91 02/07/20 20:25 36.7 C 80 16 125/89 95
[2020-02-08] MEDS: OXYCODONE HCL IR 5 MG TAB (IMMEDIATE RELEASE) PO PRN ×3 (08:28→23:34)
[2020-02-08] MEDS ORDERED: LISINOPRIL/HCTZ 20/12.5MG 1 TAB TAB PO SCH (09:00)
[2020-02-08] MEDS ORDERED: NON-FORMULARY MEDICATION (Biotin 10,000 MCG) PO SCH (09:00)
--- NOTE | 2020-02-08 10:19 | Consultation ---
Date of Consultation February 08, 2020 Assessment & Plan (1) Neurogenic claudication due to lumbar spinal stenosis: Status post L4-S1 decompression fusion by Dr. Yang POD #1 EBL 200 mL; GIO drain output 415 mL Tolerated procedure well Pain/wound management per Ortho Activity and therapy as directed by Ortho Kearns catheter has been removed She is saturating well on room air, encourage incentive spirometry Follow H&H (2) Postoperative anemia due to acute blood loss: Preop H&H 13.6 and 41.1 Today 11.2 and 33.8 EBL 200 mL; GIO drain output 200 mL (3) HTN (hypertension): Blood pressure on low side this morning Hold lisinopril/HCTZ and reevaluate in a.m. (4) Anxiety and depression: Well-controlled continue bupropion and Effexor (5) ADD (attention deficit disorder): Continue Strattera (6) DVT prophylaxis: per ortho Disposition: per primary Follow up: PCP Dr. Franco upon discharge Pt was seen and examined in collaboration with Dr. Rivero, please see addendum Thank you for this consultation. We will follow the patient with you during their hospital stay. You can reach a [facility] via pager @ [phone]. Supervising Physician Co-Signing Physician Notes I have seen and examined the patient and have discussed the case with the provider above. I agree with the assessment and plan as stated. She developed some incisional pain in the afternoon and was given Toradol for this. She was up and walking and denies nausea. Doing well overall and medication reconciliation performed. Normal cardiac exam, no increased work of breathing, no edema. Clear lungs to auscultation. Lower back incision covered with large surgical dressing. Limited mobility that is expected in post-operative setting. Agree with plan as listed above. DO Mat History of Present Illness Requesting Physician: Dr. Yang Reason for Consultation: Postop medical management Attending Physician: Serjio Yang DO History of Present Illness This is a 59-year-old female who has significant past medical history of HTN, depression, ADHD, IBS who underwent lumbar procedure by Dr. Yang on 02/07/2020. We have been consulted for postop medical management. This morning she overall has no overt complaints. She currently denies any back pain or lumbar radiculopathy symptoms. She was up and walking with PT this morning which went well. She had Kearns catheter removed just prior to my arrival. She currently denies any fever, chills, sweats, lightheadedness, dizziness, chest pain, shortness of breath, cough, nausea, vomiting, abdominal pain. She is passing flatus, but no BM. She tolerated regular diet this morning. In regards to her medical history her hypertension is well controlled with lisinopril/hydrochlorothiazide. She does have ADH well-controlled on Strattera. She also has underlying depression treated with Effexor and bupropion. She currently denies depressed mood. Allergies Allergy/AdvReac Type Severity Reaction Status Date / Time adhesive Allergy Unknown RASH Verified 02/07/20 08:11 naproxen AdvReac Unknown GI UPSET Verified 02/07/20 08:11 Home Medications Home Medications Medication Instructions Recorded Confirmed Type atomoxetine [Strattera] 60 mg PO QAM 01/12/20 02/07/20 History biotin 10,000 mcg PO QAM 01/12/20 02/07/20 History bupropion HCl [Wellbutrin SR] 150 mg PO BID 01/12/20 02/07/20 History cetirizine [Zyrtec] 10 mg PO QAM 01/12/20 02/07/20 History estradiol [Estring] See Rx Instructions .ROUTE .COMPLEX 01/12/20 02/07/20 History lisinopril-hydrochlorothiazide 1 tab PO QAM 01/12/20 02/07/20 History venlafaxine [Effexor XR] 225 mg PO QAM 01/12/20 02/07/20 History tramadol 50 mg PO Q6H PRN 02/07/20 02/07/20 History oxycodone 5 mg PO Q6H PRN #20 tab 02/08/20 Rx tramadol 50 mg PO Q6H PRN #30 tab 02/08/20 Rx Patient History Medical History ADD (attention deficit disorder) Strattera to be discontinued in near future per patient Anxiety and depression Depression High blood pressure Spinal stenosis Surgical History History of colonoscopy History of eyelid surgery AND BROW LIFT - BILAT History of gynecologic surgery "TVT" History of tonsillectomy History of total left hip arthroplasty Anterior Left LAURE: SAB x2 at L3-L4 at [facility] Family History Father Alcoholism Mother Myocardial infarction Social History (Updated 02/08/20 @ 10:14 by Sandrita Mondragon PA-C) Preferred Language: Czech Communication Ability: Effective Visual Impairment: No Limitations Hearing Ability: Normal Forepart Rasper Required: No Beliefs That Will Affect Care: None marital status: Current Living Situation: Spouse and Family Other Information That Helps Us Care for You: No Feels Safe at Home: Yes Smoking Status: Former smoker Do You Dip or Chew Tobacco: No ; Smoking End Da te: Quit JANUARY 1989 ; Hx Alcohol Use: Yes Alcohol type: beer, wine and hard liquor Alcohol Intake Frequency: Rarely Hx Substance Use: No Review of Systems Review of Systems: All systems reviewed & are unremarkable except as noted in HPI & below Physical Exam Physical Exam: Constitutional: WD/WN, F, sitting up in bedside chair, vitals as above, NAD, pleasant, conversing easily Head: Normocephalic, Atraumatic Eyes: PERRL, conjunctivae normal, anicteric sclerae ENMT: external ear and nose normal, oropharynx normal Neck: trachea midline, no thyromegaly normal visual inspection Respiratory: normal respiratory effort, lungs clear to auscultation, no wheeze, rales, rhonchi. Normal insp/exp effort, no accessory muscle use Cardiovascular: RRR, no murmur, no edema Vessels: no JVD or carotid bruit Chest: normal inspection of chest Abdomen: normal bowel sounds, soft, nontender, no hepatosplenomegaly Musculoskeletal: no cyanosis or clubbing, extremities motor strength 5/5 Skin: no rashes, warm and dry normal turgor GIO drain intact with serosangineous drainage Neurologic: PERRL, EOMI, accommodation nl, no face palsy, no dysarthria CN's II-XI intact bilaterally and moves all extremities Psychiatric: A+Ox3, euthymic affect Lymphatic: no cervical or axillary lymphadenopathy : deferred Results & Data ([facility]) Vital Signs (Past 12 Hours) Vital Signs Temp Pulse Resp BP Pulse Ox 02/08/20 08:13 36.7 C 78 16 101/64 99 02/08/20 02:41 36.5 C 77 16 96/63 L 94 02/07/20 23:07 36.8 C 82 16 108/68 91 Laboratory Results Short CBC 02/08/20 Range/Units 06:01 WBC 10.39 (4.8-10.8) K/uL Hgb 11.2 L (12.0-16.0) g/dL Hct 33.8 L (37-47) % Plt Count 228 (130-400) K/uL BMP 02/08/20 06:01 Sodium 140 Potassium 4.4 Chloride 108 H Carbon Dioxide 28 BUN 21 H Creatinine 0.86 Glucose 105 H Calcium 8.4 L Diagnostic Findings CXR: IMPRESSION: No active disease in the chest. LSpine Xray: IMPRESSION: Intraoperative images from L4-S1 spinal fusion as above. Medications Administered Atomoxetine HCl (Strattera) 60 mg PO [facility] Stop: 03/09/20 08:59 Last Admin: 02/08/20 08:14 Dose: Not Given Documented by: [id number] Bupropion HCl (Wellbutrin-Sr) 150 mg PO BID [facility] Stop: 03/08/20 20:59 Last Admin: 02/08/20 08:13 Dose: 150 mg Documented by: [id number] Admin: 02/07/20 20:29 Dose: 150 mg Documented by: [id number] Cetirizine HCl (Zyrtec) 10 mg PO [facility] Stop: 03/09/20 08:59 Last Admin: 02/08/20 08:13 Dose: 10 mg Documented by: [id number] Lisinopril/HCTZ (Prinzide 20/12.5mg) 1 tab PO [facility] Stop: 03/09/20 08:59 Last Admin: 02/08/20 08:13 Dose: 1 tab Documented by: [id number] Lorazepam (Ativan) 0.5 mg PO Q8H PRN PRN Reason: Sedation/Anxiety Stop: 03/08/20 13:43 Last Admin: 02/08/20 00:08 Dose: 0.5 mg Documented by: [id number] Oxycodone HCl (Roxicodone Immediate Rel) 5 - 10 mg PO Q4H PRN PRN Reason: Moderate-Severe Pain & Pre PT Stop: 02/21/20 13:43 Last Admin: 02/08/20 08:28 Dose: 10 mg Documented by: [id number] Admin: 02/07/20 22:36 Dose: 5 mg Documented by: [id number] Polyethylene Glycol (Miralax Powder Packet) 17 gm PO Q6 [facility] Stop: 03/09/20 05:59 Last Admin: 02/08/20 05:58 Dose: Not Given Documented by: [id number] Senna/Docusate Sodium (Senokot S) 2 tab PO HS [facility] Stop: 03/08/20 20:59 Last Admin: 02/07/20 20:30 Dose: 2 tab Documented by: [id number] Venlafaxine HCl (Effexor Extended Release) 225 mg PO QAM [facility] Stop: 03/09/20 08:59 Last Admin: 02/08/20 08:13 Dose: 225 mg Documented by: [id number] Discontinued Medications Acetaminophen (Tylenol) 1,000 mg PO PREOP LAE Stop: 02/07/20 18:00 Last Admin: 02/07/20 08:35 Dose: 1,000 mg Documented by: [id number] Bacitracin (Bacitracin) Confirm Administered Dose 50,000 units .ROUTE .STK-MED ONE Stop: 02/07/20 09:51 Last Admin: 02/07/20 11:07 Dose: 50,000 units Documented by: [id number] Bupivacaine HCl/Epinephrine Bitart (Bupivacaine 0.25%-Epi [id number]) Confirm Administered Dose 30 ml .ROUTE .STK-MED ONE Stop: 02/07/20 09:52 Last Admin: 02/07/20 11:07 Dose: 30 ml Documented by: [id number] Celecoxib (Celebrex) 200 mg PO PREOP ALE Stop: 02/07/20 18:00 Last Admin: 02/07/20 08:35 Dose: 200 mg Documented by: [id number] Gabapentin (Neurontin) 600 mg PO PREOP [facility]LE Stop: 02/07/20 18:00 Last Admin: 02/07/20 08:35 Dose: 600 mg Documented by: [id number] Lactated Ringer's (Lr) 1,000 mls @ 15 mls/hr IV .Q24H ALE Stop: 02/08/20 05:59 Last Infusion: 02/07/20 10:16 Dose: 0 mls/hr Documented by: [id number] Admin: 02/07/20 08:45 Dose: 15 mls/hr Documented by: [id number] Cefazolin Sodium (Ancef 2000mg) 2,000 mg in 15 mls @ 3.75 mls/min IV PREOP ALE; Protocol Stop: 02/07/20 18:00 Last Admin: 02/07/20 10:16 Dose: 3.75 mls/min Documented by: [id number] Cefazolin Sodium (Ancef 2000mg) 2,000 mg in 15 mls @ 3.75 mls/min IV Q8H ALE; Protocol Stop: 02/08/20 02:03 Last Admin: 02/08/20 03:00 Dose: 3.75 mls/min Documented by: [id number] Admin: 02/07/20 17:46 Dose: 3.75 mls/min Documented by: [id number] Lactated Ringer's (Lr) 1,000 mls @ 100 mls/hr IV .Q10H ALE Stop: 03/08/20 13:43 Last Infusion: 02/08/20 05:59 Dose: 0 mls/hr Documented by: [id number] Admin: 02/07/20 20:36 Dose: 100 mls/hr Documented by: [id number] Infusion: 02/07/20 20:36 Dose: 100 mls/hr Documented by: [id number] Admin: 02/07/20 15:30 Dose: 100 mls/hr Documented by: [id number] Ketorolac Tromethamine (Toradol) 15 mg IV Q6H ALE Stop: 02/08/20 09:01 Last Admin: 02/08/20 08:12 Dose: 15 mg Documented by: [id number] Admin: 02/08/20 03:00 Dose: 15 mg Documented by: [id number] Admin: 02/07/20 20:30 Dose: 15 mg Documented by: [id number] Admin: 02/07/20 15:30 Dose: 15 mg Documented by: [id number] Miscellaneous (Floseal Hemostatic Matrix 10ml) 10 ml TOP ONCE ONE Stop: 02/07/20 11:09 Last Admin: 02/07/20 12:25 Dose: 12 ml Documented by: [id number] ECG Rate (beats per minute): 82 Rhythm: normal sinus
[2020-02-08] MEDS ORDERED: KETOROLAC TROMETHAMINE 15 MG/ML VIAL IV ONE (17:00)
[2020-02-08] MEDS: DOCUSATE SODIUM/SENNA 50/8.6MG TAB PO SCH (20:24)
[2020-02-09] MEDS: OXYCODONE HCL IR 5 MG TAB (IMMEDIATE RELEASE) PO PRN ×4 (03:37→21:53)
[2020-02-09] MEDS: POLYETHYLENE (MIRALAX) 17 GM PACK PO SCH ×2 (05:20→11:37)
[2020-02-09] MEDS: TRAMADOL HCL 50 MG TABLET PO PRN ×4 (06:16→23:51)
[2020-02-09] MEDS: ATOMOXETINE HCL 60 MG CAPSULE PO SCH (08:31)
[2020-02-09] MEDS: CETIRIZINE HCL 10 MG TABLET PO SCH (08:31)
[2020-02-09] MEDS: VENLAFAXINE HCL XR 75 MG CAPXR PO SCH (08:31)
[2020-02-09] MEDS: BuPROPion SR 150 MG TABCR PO SCH ×2 (08:31→21:46)
--- NOTE | 2020-02-09 10:50 | Orthopedic Progress Note ---
Date of Service February 09, 2020 Assessment & Plan (1) Neurogenic claudication due to lumbar spinal stenosis: This time we will continue physical therapy monitor her GIO output possibly discharge home tomorrow. Present on Admission?: Yes Admission and Anticipated Discharge Date Admission Date: February 07, 2020 Subjective Patient complaining of back pain today. Leg pain continues to be improved. Physical Exam Physical Exam: Patient is in the chair at the bed side. She has good strength testing. Results & Data ([facility]) Vital Signs (Past 12 Hours) Vital Signs Temp Pulse Resp BP BP Pulse Ox 02/09/20 10:47 94 H 111/77 02/09/20 07:53 36.9 C 84 16 98/66 L 93 02/09/20 00:09 36.8 C 78 18 103/66 98 02/08/20 23:34 36.8 C 78 18 103/66 98
[2020-02-09] MEDS: DEXAMETHASONE SOD PHOSPHATE 8 MG in SYRINGE 0 ML IV SCH (11:37)
--- NOTE | 2020-02-09 17:40 | Hospitalist Progress Note ---
Date of Service February 09, 2020 Assessment & Plan (1) Neurogenic claudication due to lumbar spinal stenosis: Status post L4-S1 decompression fusion by Dr. Yang POD #2 EBL 200 mL; GIO drain output 415 mL Tolerated procedure well Pain/wound management per Ortho Activity and therapy as directed by Ortho Encouraged incentive spirometry (2) Postoperative anemia due to acute blood loss: Preop H&H 13.6 and 41.1 and 11.2 and 33.8 (3) HTN (hypertension): Blood pressure on low side this morning Hold lisinopril/HCTZ and reevaluate in a.m. (4) Anxiety and depression: Well-controlled continue bupropion and Effexor (5) ADD (attention deficit disorder): Continue Strattera (6) DVT prophylaxis: SCDs Full Code Dispo-per Ortho DO Jarod Rodriguez Hospitalist Admission and Anticipated Discharge Date Admission Date: February 07, 2020 Subjective pt improved overall today denies nausea pain is improved and controlled with medications denies any other issues tolerating PO Review of Systems Review of Systems: All systems reviewed & are unremarkable except as noted in Subjective Physical Exam Physical Exam: CONSTITUTIONAL: WNWD, vitals as above, generally well- appearing EYES: normal conjunctivae, no scleral icterus ENT: external ear and nose normal, MMM RESPIRATORY: clear to auscultation bilaterally, no crackles, rales or wheezes, normal respiratory effort CARDIOVASCULAR: regular rate and rhythm, S1 and 2 heard without murmurs, gallops or rubs, no JVD, no peripheral edema GASTROINTESTINAL: normal bowel sounds, soft, nontender, nondistended MUSCULOSKELETAL: strength 5/5 throughout, head is normocephalic and atraumatic, neck supple, normal palpation of chest wall without tenderness SKIN: warm and dry, back incision covered with surgical dressing. NEUROLOGIC: patellar DTRs 2+ bilat. PERRL, EOMI, no facial palsy, no dysarthria. Touch, pain and proprioception normal. CN 2-12 grossly intact, no sensory deficit, normal cognition, normal speech, no tremor PSYCHIATRIC: alert cooperative and oriented to person, place and time. Results & Data Results & Data ([facility] [place]) Vital Signs (Past 12 Hours) Vital Signs Temp Pulse Resp BP BP Pulse Ox 02/09/20 15:17 37.0 C 88 17 109/73 92 02/09/20 14:14 92 H 100/68 02/09/20 10:47 94 H 111/77 02/09/20 07:53 36.9 C 84 16 98/66 L 93 Medications Administered Current Inpatient Medications Acetaminophen (Tylenol) 1,000 mg PO Q8H PRN PRN Reason: MILD Pain Scale 1,2,3 & Pre PT Stop: 03/08/20 13:43 Last Admin: 02/08/20 18:25 Dose: 1,000 mg Documented by: Al Hydrox/Mg Hydrox/Simethicone (Maalox) 30 ml PO Q6H PRN PRN Reason: Dyspepsia Stop: 03/08/20 13:43 Atomoxetine HCl (Strattera) [facility] [place] Stop: 03/09/20 08:59 Last Admin: 02/09/20 08:31 Dose: Not Given Documented by: Bisacodyl (Dulcolax) 10 mg FL DAILY PRN PRN Reason: Constipation Stop: 03/08/20 13:43 Bupropion HCl (Wellbutrin-Sr) 150 mg PO BID [facility] Stop: 03/08/20 20:59 Last Admin: 02/09/20 08:31 Dose: 150 mg Documented by: Cetirizine HCl (Zyrtec) 10 mg PO [facility] Stop: 03/09/20 08:59 Last Admin: 02/09/20 08:31 Dose: 10 mg Documented by: Diphenhydramine HCl (Benadryl Capsule) 25 mg PO Q6H PRN PRN Reason: Allergic Rhinitis/Insomnia Stop: 03/08/20 13:43 Famotidine (Pepcid) 20 mg PO Q12H PRN PRN Reason: Dyspepsia Stop: 03/08/20 13:43 Lisinopril/HCTZ (Prinzide 20/12.5mg) 1 tab PO [facility] Stop: 03/09/20 08:59 Last Admin: 02/08/20 08:13 Dose: 1 tab Documented by: Hydromorphone HCl (Dilaudid) 0.5 mg IV Q3H PRN PRN Reason: MOD pain (scale 4-6) & Pre PT Stop: 02/21/20 13:43 Last Admin: 02/09/20 10:39 Dose: 0.5 mg Documented by: Hydromorphone HCl (Dilaudid) 1 mg IV Q3H PRN PRN Reason: severe pain (scale 7-10) Stop: 02/21/20 13:43 Hydroxyzine HCl (Vistaril) 25 mg PO Q8H PRN PRN Reason: Anxiety Stop: 03/08/20 13:43 Lorazepam (Ativan) 0.5 mg in 1 mls @ 0.5 mls/min IV Q8H PRN PRN Reason: Sedation/Anxiety Stop: 03/08/20 13:43 Promethazine HCl 12.5 mg/ (Sodium Chloride) 50.5 mls @ 204 mls/hr IV Q6H PRN PRN Reason: Nausea &/or Vomiting Stop: 03/08/20 13:43 Dexamethasone Sodium Phosphate (8 mg/ Syringe) 2 mls @ 1 mls/min IV DAILY [facility] Stop: 03/10/20 10:59 Last Admin: 02/09/20 11:37 Dose: 1 mls/min Documented by: Influenza Virus Vaccine Quadrival (Flu Vaccine, Do Not Administer) 1 ea N/A PRN PRN PRN Reason: Notification Stop: 03/08/20 13:43 Lorazepam (Ativan) 0.5 mg PO Q8H PRN PRN Reason: Sedation/Anxiety Stop: 03/08/20 13:43 Last Admin: 02/08/20 00:08 Dose: 0.5 mg Documented by: Magnesium Hydroxide (Milk Of Magnesia) 30 ml PO DAILY PRN PRN Reason: Constipation Stop: 03/08/20 13:43 Metoclopramide HCl (Reglan) 10 mg IV Q6H PRN PRN Reason: Nausea &/or Vomiting Stop: 03/08/20 13:43 Naloxone HCl (Narcan) 0.1 mg IV Q5M PRN; Protocol PRN Reason: Oversedation/Resp Depression Stop: 03/08/20 13:43 Ondansetron HCl (Zofran) 4 mg IV Q6H PRN PRN Reason: Nausea &/or Vomiting Stop: 03/08/20 13:43 Ondansetron HCl (Zofran Odt) 4 mg PO Q6H PRN PRN Reason: Nausea Stop: 03/08/20 13:43 Oxycodone HCl (Roxicodone Immediate Rel) 5 - 10 mg PO Q4H PRN PRN Reason: Moderate-Severe Pain & Pre PT Stop: 02/21/20 13:43 Last Admin: 02/09/20 15:49 Dose: 10 mg Documented by: Pneumococcal Polyvalent Vaccine (Pneumococcal Vacc, Do Not Administer) 1 ea N/A PRN PRN PRN Reason: Notification Stop: 03/08/20 13:43 Senna/Docusate Sodium (Senokot S) 2 tab PO HS [facility] Stop: 03/08/20 20:59 Last Admin: 02/08/20 20:24 Dose: 2 tab Documented by: Sodium Biphosphate/Sodium Phosphate (Fleet Enema) 132 ml FL ONE PRN PRN Reason: Constipation Stop: 03/08/20 13:43 Tramadol HCl (Ultram) 50 - 100 mg PO Q4H PRN PRN Reason: Moderate-Severe Pain & Pre PT Stop: 03/08/20 13:43 Last Admin: 02/09/20 14:11 Dose: 100 mg Documented by: Venlafaxine HCl (Effexor Extended Release) [facility] [place] Stop: 03/09/20 08:59 Last Admin: 02/09/20 08:31 Dose: 225 mg Documented by:
[2020-02-09] MEDS: DOCUSATE SODIUM/SENNA 50/8.6MG TAB PO SCH (21:46)
[2020-02-09] MEDS: LORazepam 0.5 MG TAB PO PRN (23:50)
[2020-02-10] MEDS: OXYCODONE HCL IR 5 MG TAB (IMMEDIATE RELEASE) PO PRN ×2 (06:52→12:34)
[2020-02-10] MEDS: CETIRIZINE HCL 10 MG TABLET PO SCH (10:00)
[2020-02-10] MEDS: VENLAFAXINE HCL XR 75 MG CAPXR PO SCH (10:01)
[2020-02-10] MEDS: ATOMOXETINE HCL 60 MG CAPSULE PO SCH (10:01)
--- NOTE | 2020-02-10 10:05 | Discharge Summary ---
Date of Service February 10, 2020 Admission HPI Per Admitting Provider This is a 59-year-old female who presents with chronic persistent back and bilateral leg pain. After failing extensive course of nonoperative care is here for surgical intervention. Principal Diagnosis Lumbar spinal stenosis with neurogenic claudication Discharge Data Allergies Allergy/AdvReac Type Severity Reaction Status Date / Time adhesive Allergy Unknown RASH Verified 02/07/20 08:11 naproxen AdvReac Unknown GI UPSET Verified 02/07/20 08:11 Consultations 02/07/20 13:44 Consult Case Management - Discharge Planning Routine Consult Hospitalist Routine Procedures Performed Operation Date: 12/04/19 09:05 <No data on this case meets the specified criteria> Operation Date: 02/07/20 09:35 Actual Procedures p L4-S1 Decompression Fusion, use of Infuse, use of osteoamp, Spinal Cord Monitoring(Not Applicable) - Serjio Yang DO Ordered Studies 02/07/20 09:35 FL fluoroscopy <1hr Routine FL lumbar spine 2-3V Routine Hospital Course (1) Neurogenic claudication due to lumbar spinal stenosis: Patient went multilevel lumbar decompression fusion tolerated this well was taken to orthopedic for postoperative. Postop day #1 she was up and ambulating progressed to postop day #2 on postop day #3 pain was well controlled leg pain improved. GIO drain decreasing probably. Subsequently discharged home. Discharge orders instructions from the chart for further review. Total Time Total Time Spent Total Time Spent (In Minutes): 20 minutes Discharge Plan Discharge Items Patient Disposition: Home - Self-Care Reason For Visit: LUMBAR SPINAL STENOSIS W NEUROGENIC CLAUDICATION Discharge Diagnosis: Lumbar spinal stenosis with neurogenic claudication Activity: As commented below Non-emergency contact: Primary Care Provider Call non-emergency contact if: you have any medication questions Follow-up/Referrals: Aminata Franco MD [Primary Care Provider] - Diet: Regular Addtl Attending Provider Instructions: ACTIVITY RECOMMENDATIONS: SELF CARE INSTRUCTIONS AFTER THORACIC/LUMBAR FUSIONS 1. You may walk to your tolerance. It is good exercise for your legs and back. Expect some back and intermittent leg aches and pains. 2. You may perform "counter-top" level activities (make a sandwich, demar with a project, etc.). 3. No bending or lifting of more than 10 pounds or back twisting of any nature (roll like a log when turning in bed). 4. You may ride in a car for 20-30 minutes at a time. No driving until after your first visit with your doctor. 5. Frequent changes of position and restricting sitting to 30 minutes at a time will help limit the amount of back spasms and stiffness you may experience. 6. You may discontinue the use of ambulatory aids (cane, crutches, etc.) once your strength and confidence allow. 7. You may clinical project leader the shower and let water strike your incision when you arrive home at least once daily. Do not take a tub bath, sit in a hot tub or go into a swimming pool until after your first recheck in the office. SPECIAL CARE INSTRUCTIONS: VERY IMPORTANT TO READ AND REVIEW A. Your surgical incision has been closed with a cosmetic suture under the skin that will dissolve in about 6 weeks. In 14 days, you can use a pair of clean scissors and cut the suture that is left outside of the skin at the ends of your incision. 1. The small skin tapes can be removed 7 days after surgery if they have not fallen off by that point. 2. You may keep the wound open to air as much as possible to promote healing after post-op day number 5 unless told otherwise by your doctor. 3. If you think the wound looks like it is becoming infected (redness or worsening drainage) and/or you are experiencing fever, chill or worsening back pain and muscle spasms, contact the office so that we may evaluate you as soon as possible. B. Complications are uncommon, but please contact us if you have any signs or symptoms of: 1. wound infection (fever higher than 102.5 degrees F, redness, separation of wound, drainage, or increasing pain from the incision) 2. blood clots in legs (pain, swelling, redness and warmth in legs) 3. urinary tract infection (fever higher than 102.5 degrees F, burning upon urination or increased frequency of urination) 4. nerve problems (inability to walk on your toes or heels, numbness, loss of bowel or bladder control) 5. any other symptoms that concern you C. Please call the office at if you have any concerns or questions about your operation or recovery. D. No smoking! Smoking drastically decreases the chance of a solid fusion. E. Do not take any anti-inflammatory medications (Indocin, Advil, Motrin, Aspirin, Naprosyn, etc.) as these may inhibit the chance of a solid fusion. Tylenol is okay to take for pain. MANAGING PAIN AFTER SPINAL SURGERY 1. Narcotic medication is intended for short-term use and will be provided for surgical pain. Surgical pain usually lasts for a period of 4-6 weeks. Narcotic medication includes Percocet, Vicodin, Darvocet, Tylenol #3 or Lortab. 2. Longer-term pain is more appropriately treated with non-narcotic medication such as Tylenol ES. 3. Muscle spasm is not appropriately treated with narcotics. Muscle relaxers such as Soma, Flexeril or Skelaxin can be used along with Tylenol ES. 4. Remember that we all live with some "aches and pains". This is not unusual or uncommon after an injury or as we get older. a. Back pain is expected and may include muscle spasms for 4 to 6 weeks after surgery. The pain should gradually improve. If the pain worsens for no apparent reason, please contact the office. b. Intermittent leg pain may also be experienced and should not be concerned about unless it worsens for no apparent reason. If so, please contact the office. 5. We will provide appropriate medication within the normal guidelines of their prescribed use. We will also be very cautious and aware of potential abuse and extended duration of patients' medication needs. a. Pain medications are for your comfort and to assist with sleep and rest so that the tissue can heal. They are not provided in order to return to normal activity and should not be used through the day. To do so or worsening pain at night can result from ongoing tissue damage and development of tolerance to the prescribed medicine. 6. Please allow 2-3 days to process refills. Prescriptions will not be mailed but must be picked up at the office. FOLLOW UP VISIT: Keep your scheduled follow-up appointment. Any questions, please call the office at . Pending Studies at Discharge: No Stand-Alone Forms: My [place], Smoking Cessation Medications and DC Order Prescriptions: New tramadol 50 mg tablet 50 mg PO Q6H PRN (Reason: pain, moderate) Qty: 30 RF: 0 oxycodone 5 mg tablet 5 mg PO Q6H PRN (Reason: pain, severe) Qty: 20 RF: 0 Continued bupropion HCl [Wellbutrin SR] 150 mg Tablet Sustained-Release 12 Hr 150 mg PO BID RF: 0 lisinopril-hydrochlorothiazide 20-12.5 mg Tablet 1 tab PO QAM RF: 0 venlafaxine [Effexor XR] 150 mg Capsule,Extended Release 24hr 225 mg PO QAM RF: 0 biotin 10,000 mcg Capsule 10,000 mcg PO QAM RF: 0 Estring 2 mg (7.5 mcg /24 hour) Ring See Rx Instructions .ROUTE .COMPLEX RF: 0 atomoxetine [Strattera] 60 mg Capsule 60 mg PO QAM RF: 0 Zyrtec 10 mg Capsule 10 mg PO QAM RF: 0 tramadol 50 mg Tablet 50 mg PO Q6H PRN (Reason: Pain) RF: 0 Discharge Orders: Discharge Order (Routine); Ordered 02/10/20 Ordered By: Serjio Yang Admission Data Admit Date/Time: 02/07/20 12:38 Attending Provider: Serjio Yang Admit Provider: Serjio Yang Primary Care Provider: Aminata Franco Other Providers: Oma Rivero
[2020-02-10] MEDS: DEXAMETHASONE SOD PHOSPHATE 8 MG in SYRINGE 0 ML IV SCH (10:57)
[2020-02-10] MEDS: BuPROPion SR 150 MG TABCR PO SCH (10:58)
== END 2020-02-10 13:19 | disposition home or self-care (01) | DRG 454 ==
LOC: ASU 07:45 → INTOOBSV 12:38 → 3E 12:38